=== PATIENT | female | born 1940 | race Caucasian/White ===

== ENCOUNTER → 2017-12-11 08:00 | Outpatient (CLI) | payer OTHER, SELFPAY ==
--- NOTE | 2017-12-11 | DI.MRI.S_ITS ---
PROCEDURE: MR PELVIS WO CON INDICATIONS: 77 year-old female with pelvic pain and lumbar stenosis. TECHNIQUE: Noncontrast coronal and axial T1 spin echo and STIR through the bony pelvis. COMPARISON: [facility], MR, MR LUMBAR SPINE WO CON, 12/11/2017, 8:26. FINDINGS: Image quality: Several sequences are mildly degraded by respiratory motion. Bones: Bone marrow of the pelvic ring, sacrum, and proximal femurs show normal signal throughout. No intraosseous lesions or fractures identified. There is asymmetric right hip joint degeneration, with patchy full thickness cartilage loss of the right femoral head and acetabulum, with subchondral marrow edema. The visualized lower lumbar spine demonstrates multilevel degenerative disc narrowing and desiccation. Tendons: The gluteus medius and minimus tendons appear intact, without associated muscle atrophy. The nearby proximal iliotibial bands also appear intact. The iliopsoas tendons appear intact, without adjacent bursal fluid collections or evidence for impingement syndrome. The origin of the hamstring tendons are intact at the ischial tuberosity, as well as the associated sacrotuberous ligaments. The straight and reflected heads of the rectus femoris muscle origins appear intact, as well as the conjoint tendon. On coronal image 16, widespread posterior right hip paralabral cysts are present, measuring up to 3 cm in aggregate craniocaudal dimensions. Soft tissues: Visualized muscles demonstrate normal bulk and internal signal. No joint effusions. No free pelvic fluid. Bladder wall thickness is normal. There is mild sigmoid colon diverticulosis. Uterus is normal in size, with 10 mm left uterine body intramural fibroid. Postmenopausal ovaries both appear atrophic. IMPRESSION: 1. Asymmetric right hip joint degeneration, as well as widespread posterior right hip labral tear with paralabral cyst formation. 2. 10 mm left uterine body intramural fibroid. Dictated by: Sami Smith M.D. on 12/11/2017 at 10:41 Approved by: Sami Smith M.D. on 12/11/2017 at 10:50
--- NOTE | 2017-12-11 | DI.MRI.S_ITS ---
PROCEDURE: MR LUMBAR SPINE WO CON INDICATIONS: LUMBAR SPINE STENOSIS TECHNIQUE: Noncontrast sagittal T1 spin echo and T2 fast echo, sagittal STIR, axial T1 and T2 fast spin echo through the lumbar spine. In this patient, coronal T2-weighted images were also performed. COMPARISON: [facility], , MRI L-SPINE W/O CONTRAST, 02/20/2000, 12:19. [facility], MR, L-SPINE WITHOUT CONTRAST, 08/18/2015, 10:17. [facility], XA, L/S-SPINE 2-3 VIEWS PAIN DEPT, 11/20/2009, 10:26. FINDINGS: Image quality: Diagnostic, with note made of motion artifact. Alignment and Curvature: S-shaped scoliotic curvature is seen. There is minimal anterolisthesis at L3-L4. Minimal retrolisthesis is seen at L5-S1. Bone Marrow: Marrow is of normal overall signal. No acute vertebral body compression fractures. Spinal Cord: Conus medullaris terminates at the L1 level. Visualized cord demonstrates normal signal and size. Paraspinous Soft Tissues: No paravertebral masses. T11-T12: The disc height is well-preserved. Loss of disc signal is seen at this level. Moderate generalized disc bulge is seen. At least moderate bilateral neural foraminal narrowing is seen. Moderate central canal narrowing is seen. T12-L1: The disc height is well-preserved. Loss of disc signal is seen at this level. Moderate generalized disc bulge is seen. There is at least moderate bilateral neural foraminal narrowing seen. Moderate to severe central canal narrowing is seen, as on series 6 image 32. L1-L2: Moderate to severe loss of disc height and disc signal are seen. Endplate irregularity is seen. Reactive marrow endplate changes are seen, which demonstrate mixed T1 weighted and T2-weighted signal, and are attributed to a combination of edema and fatty metaplasia (Modic type I and Modic type II changes). Moderate to prominent disc bulge is seen. Moderate facet joint hypertrophy is seen. Moderate to severe bilateral neural foraminal narrowing is seen, right worse than left. There is a degree of impingement seen upon the exiting nerve roots. Moderate to severe central canal narrowing is seen. No significant change from the prior. L2-L3: Moderate loss of disc height is seen. Loss of disc signal is seen. Moderate generalized disc bulge is seen. [id number]-[id number] facet hypertrophy is seen. There is at least moderate left-sided and moderate right-sided neural foraminal narrowing seen Moderate central canal narrowing is seen. When comparison is made with the prior examination, these findings are similar. L3-L4: Moderate to severe loss of disc height and disc signal are seen. Moderate disc bulge seen, which is eccentric to the left. Moderate facet joint hypertrophy is seen. There has been removal of portions of the posterior elements. There is moderate to severe left-sided and moderate right-sided neural foraminal narrowing seen. Mild central canal narrowing is seen. The degree of central canal narrowing is improved compared to 2016. L4-L5: Moderate to severe loss of disc height and disc signal are seen in moderate disc bulge is seen, which is eccentric to the left. There is at least moderate bilateral neural foraminal narrowing seen, left worse than right. There has been removal of portions of the posterior elements. Mild central canal narrowing is seen. The degree of central canal narrowing is improved compared to the preoperative MRI. L5-S1: At least moderate loss of disc height and disc signal are seen. Moderate disc bulge is seen, which is eccentric to the right. Imcx-ad-[id number] facet hypertrophy is seen. Moderate bilateral neural foraminal narrowing is seen, right worse than left. Moderate central canal narrowing is seen. When comparison is made with the prior examination, these findings are similar. IMPRESSION: Improved central canal narrowing at L3-L4 and L4-L5 compared to 2016. Otherwise, the degrees of degenerative change are similar to 2016. S-shaped scoliotic curvature. Dictated by: Matt Golden M.D. on 12/11/2017 at 9:03 Approved by: Matt Golden M.D. on 12/11/2017 at 9:12
== END ==
PROVIDERS: Family Provider Family Medicine; PCP Family Medicine; Visit Provider Physical Medicine & Rehabilitation
DX: M48.061 Spinal stenosis, lumbar region without neurogenic claudication (principal); R10.2 Pelvic and perineal pain; M16.11 Unilateral primary osteoarthritis, right hip; D25.1 Intramural leiomyoma of uterus; S73.101A Unspecified sprain of right hip, initial encounter
CPT/HCPCS: 72148; 72195

== ENCOUNTER → 2020-01-11 12:34 | Outpatient (CLI) | payer OTHER, SELFPAY ==
--- NOTE | 2020-01-11 12:39 | DI.CT.S_ITS ---
PROCEDURE: CT UE LT WO CON INDICATIONS: Primary osteoarthritis, left shoulder TECHNIQUE: Noncontrast 1 mm thick sections acquired from the acromioclavicular joint to the inferior scapula, with coronal and sagittal reformatting. COMPARISON: None. FINDINGS: Image quality: Excellent. Bones: Severe glenohumeral joint osteoarthritic changes are noted with near complete loss of medial joint space, extensive subchondral sclerosis and cyst formation and prominent marginal osteophyte formation. Moderate acromioclavicular joint osteoarthritic changes are also seen. There is no acute fracture or dislocation. No suspicious intraosseous lesion is noted. Soft tissues: There is suggestion of large joint effusion and subacromial subdeltoid bursal fluid. There is suggestion of full-thickness rupture involving distal supraspinatus and infraspinatus. Moderate supraspinatus and likely infraspinatus muscle atrophy is also noted. IMPRESSION: 1. Severe glenohumeral joint osteoarthritis and moderate acromioclavicular joint osteoarthritis. No shoulder fracture or dislocation. No suspicious intraosseous lesion. 2. Suggestion of full-thickness rupture involving distal supraspinatus and infraspinatus with moderate supraspinatus and likely infraspinatus muscle atrophy. Large amount of joint fluid in subacromial subdeltoid bursal fluid. No definite intra-articular calcified loose body is seen. Dictated by: Aime Isabel M.D. on 01/11/2020 at 15:09 Approved by: Aime Isabel M.D. on 01/11/2020 at 15:13
== END ==
PROVIDERS: Family Provider Family Medicine; PCP Family Medicine; Referring Provider Orthopaedic Surgery; Visit Provider Orthopaedic Surgery
DX: M19.012 Primary osteoarthritis, left shoulder (principal)
CPT/HCPCS: 73200

== ENCOUNTER → 2020-08-23 13:41 | Outpatient (CLI) | payer OTHER, SELFPAY ==
--- NOTE | 2020-08-23 14:46 | DI.MRI.S_ITS ---
PROCEDURE: MR PELVIS WO CON INDICATIONS: Pain in left hip TECHNIQUE: Noncontrast axial and coronal T1 spin echo and STIR through the lumbosacral plexus region. Optional contrast may be given, followed by axial and coronal T1 spin echo with fat saturation through the sacral plexus. COMPARISON: [facility], CR, XR LUMBAR SPINE WITH OLBIQUES PLUS FLEXION EXTENSION, 03/29/2020, 15:08. [facility], , MR PELVIS WO CON, 12/11/2017, 9:03. FINDINGS: Image quality: Excellent. Lumbosacral plexus: Superior to the piriformis muscles, the pre-plexal structures appear normal, including the lumbosacral trunk and S1 root. Just anterior to the piriformis muscles, the sacral plexus proper demonstrates normal morphology (lumbosacral trunk, S1 to S3 nerve roots). Inferior to the piriformis muscles, the sciatic nerves appear normal. Soft tissues: The piriformis muscles appear symmetric in size. No presacral masses. Rectum appears normal in caliber and wall thickness. No pathologic free pelvic fluid. No visualized adenopathy by size criteria. Bones: Marrow is normal in overall signal, and there is a [id number] degree of bilateral hip joint space narrowing, consistent with degenerative osteoarthritis, chronic. There is lumbosacral spine disc height reduction also, partially visualized. No disc herniation impinging on individual nerve roots is seen, by the limited evaluation through that area. There is no mass or inflammation impinging on the lumbosacral plexus, and a definite source of asymmetric left greater than right hip pain is not found. No inflammatory or neoplastic process is seen through the adnexal structures.. IMPRESSION: Overall the study shows degenerative hip joint osteoarthritis that is considered near symmetric bilaterally. There is also degenerative lumbosacral spine disc disease which is only partially visualized at the uppermost imaging of this study. Overall no impingement on the lumbosacral plexus or evidence of discrete new orthopedic abnormality is found to explain asymmetric left-sided symptomatology. Dictated by: Ger Dow M.D. on 08/23/2020 at 16:44 Approved by: Ger Dow M.D. on 08/23/2020 at 16:49
== END ==
PROVIDERS: Family Provider Family Medicine; PCP Family Medicine; Referring Provider Physical Medicine & Rehabilitation; Visit Provider Physical Medicine & Rehabilitation
DX: M25.552 Pain in left hip (principal); M16.0 Bilateral primary osteoarthritis of hip; M51.37 Other intervertebral disc degeneration, lumbosacral region
CPT/HCPCS: 72195

== ENCOUNTER → 2021-11-12 13:04 | Outpatient (CLI) | payer OTHER, SELFPAY | PROVIDERS: Family Provider Family Medicine; PCP Family Medicine; Referring Provider Family Medicine; Visit Provider Family Medicine | DX: T81.89XA Other complications of procedures, not elsewhere classified, initial encounter (principal); S81.801A Unspecified open wound, right lower leg, initial encounter; L92.8 Other granulomatous disorders of the skin and subcutaneous tissue; I87.2 Venous insufficiency (chronic) (peripheral); R60.0 Localized edema; Z85.828 Personal history of other malignant neoplasm of skin | CPT/HCPCS: 11042; 99204; 99213 ==

== ENCOUNTER → 2021-12-06 13:45 | Outpatient (CLI) | payer OTHER, SELFPAY | PROVIDERS: Family Provider Family Medicine; PCP Family Medicine; Referring Provider Dermatology MOHS-Micrographic Surgery; Visit Provider Family Medicine | DX: Z09 Encounter for follow-up examination after completed treatment for conditions other than malignant neoplasm (principal); R60.0 Localized edema; Z86.007 Personal history of in-situ neoplasm of skin; Z87.2 Personal history of diseases of the skin and subcutaneous tissue | CPT/HCPCS: 99212; 99213 ==

== ENCOUNTER → 2022-02-28 13:39 | Outpatient (CLI) | payer OTHER, SELFPAY ==
--- NOTE | 2022-02-28 13:40 | DI.MRI.S_ITS ---
PROCEDURE: MR LUMBAR SPINE WO CON INDICATIONS: Spinal stenosis, lumbar region TECHNIQUE: Noncontrast sagittal T1 spin echo and T2 fast echo, sagittal STIR, and T2 fast spin echo through the lumbar spine. In cases with scoliosis, additional coronal T2 fast spin echo may be performed. COMPARISON: [facility], MR, MR LUMBAR SPINE WO CON, 12/11/2017, 8:26. [facility], RF, LUMBAR RHIZOTOMY, 08/30/2020, 12:24. [facility], CR, XR LUMBAR SPINE WITH OLBIQUES PLUS FLEXION EXTENSION, 03/29/2020, 15:08. [facility], MR, L-SPINE WITHOUT CONTRAST, 08/18/2015, 10:17. FINDINGS: Image quality: Age-appropriate bony degenerative changes are seen. Alignment and Curvature: Moderate S shaped scoliosis is seen. Bone Marrow: Marrow is of normal overall signal. No acute vertebral body compression fractures. Spinal Cord: Conus medullaris terminates at the L1 level. Visualized cord demonstrates normal signal and size. Paraspinous Soft Tissues: No paravertebral masses. T12-L1: There is at least moderate loss of disc height and disc signal on the right side. Reactive marrow endplate changes are seen which are hypointense on T1-weighted imaging and hyperintense on T2 weighted imaging, which is most consistent with edema (Modic type I changes). Relatively prominent endplate irregularity can be seen. At least moderate disc bulge is seen, which is eccentric to the right. There is a central disc extrusion, with mild superior migration of the disc material. There is moderate to severe bilateral neural foraminal narrowing seen, with an associated a degree of compression seen upon the exiting nerve roots. Moderate to severe central canal narrowing is also seen. These degenerative changes are mildly progressed compared to 2018. L1-L2: Moderate to severe loss of disc height and disc signal can be seen. Reactive marrow endplate changes are seen, which are hyperintense on T1-weighted and T2-weighted imaging and most consistent with fatty metaplasia (Modic type II changes). At least moderate disc bulge is seen, which is eccentric to the right side. There is at least moderate facet hypertrophy seen. There is moderate to severe bilateral neural foraminal narrowing seen, with an associated a degree of compression seen upon the exiting nerve roots. At least moderate central canal narrowing is also seen at this level. These degenerative changes are slightly progressed compared to 2018. L2-L3: At least moderate loss of disc height and disc signal can be seen on the left side. There is at least moderate left-sided neural foraminal narrowing, with a degree of compression upon the exiting left L2 nerve root. Moderate right-sided neural foraminal narrowing is seen. Moderate central canal narrowing is seen. When comparison is made with the prior images, these findings are similar. L3-L4: Moderate to severe loss of disc height and disc signal can be seen, which is slightly more prominent on the left than on the right. Bridging endplate osteophytes are seen on the left, as on series 3, image 6. There is at least moderate facet hypertrophy seen. There has been removal of portions of the posterior elements. There is [id number] right-sided and at least moderate left-sided neural foraminal narrowing. Mild central canal narrowing is seen. When comparison is made with the prior images, these findings are similar. L4-L5: There is at least moderate loss of disc height and disc signal seen. At least moderate disc bulge is seen, which is eccentric to the left. Partially bridging endplate osteophytes are seen on the left, as on series 3, image 5. At least moderate facet hypertrophy is seen. There has been removal of portions of the posterior elements. There is at least moderate right-sided and moderate to severe left-sided neural foraminal narrowing. There is a degree of compression seen upon the exiting nerve roots. Mild to moderate central canal narrowing is seen. No significant change from the prior. L5-S1: Moderate to severe loss of disc height and disc signal can be seen. At least moderate disc bulge is seen, which is eccentric to the right. Bridging endplate osteophytes are seen on the right, as on series 3, image 6. Moderate facet hypertrophy is seen at this level. There is at least moderate bilateral neural foraminal narrowing seen. There is a degree of compression seen upon the exiting nerve roots. Mild central canal narrowing is seen. When comparison is made with the prior images, these findings are similar. IMPRESSION: Multiple levels of lumbar spine prominent degenerative change can be seen, which are mildly progressed superiorly compared to 2018. Several sites of significant neural foraminal narrowing can be seen, with associated exiting nerve root compression. There is moderate S shaped scoliosis. Dictated by: Matt Golden M.D. on 02/28/2022 at 16:33 Approved by: Matt Golden M.D. on 02/28/2022 at 16:40
== END ==
PROVIDERS: Family Provider Family Medicine; PCP Family Medicine; Referring Provider Physical Medicine & Rehabilitation; Visit Provider Physical Medicine & Rehabilitation
DX: M48.062 Spinal stenosis, lumbar region with neurogenic claudication (principal); M41.86 Other forms of scoliosis, lumbar region
CPT/HCPCS: 72148

== ENCOUNTER 2024-01-12 09:45 | Outpatient (RCR) | payer OTHER, SELFPAY ==
--- NOTE | 2023-10-31 19:15 | PT.OIE ---
Current Diagnoses Other female genital prolapse (10/31/23) Visit Care Team Role Provider Type Dior Pires DO Family Provider Non-Staff Primary Care Provider Specialty: Family Practice Address: [address], [place], [address] Email: Enmanuel Serna MD Attending Provider Non-Staff Referring Provider Specialty: Internal Medicine Address: [address], [place], [address] Email: Physical Therapy Initial Evaluation PT-OP-A Visit Information Start: 10/03/23 19:13 Freq: Status: Active Protocol: Document 10/31/23 09:52 LRN (Rec: 10/31/23 10:37 LRN [id number]) Out-Patient Physical Therapy Visit Information Visit Information Visit Type Initial Evaluation Visit Start Time 09:52 Visit Stop Time 10:36 Visit Number 1 Evaluation Information Evaluation Date 10/31/23 Precautions Precautions Hearing problems, 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 Requests no laser treatment (pt may mean vaginal E-stim). PT-OP-B Current Condition Start: 10/03/23 19:13 Freq: Status: Active Protocol: Document 10/31/23 09:52 LRN (Rec: 10/31/23 10:37 LRN [id number]) Current Condition History of Current Condition Onset Date 03/25/23 Current Complaints Told cystocele and increased urination frequency. History of Current Condition Pt reports after ultrasound on 03/25/23, she was told she had a rectocele, then ~2 months later was told by OBGYN she had a cyctocele and was told if she didn't treat it, she would need surgery. Pt attends therapy to avoid surgery. She reports having low back pain (LBP) because she is overdue for her epidural spinal injection (MARY ) that she has every 6 months. She has trouble with back pain and sits on cushion for her LBP. Pt states she has had therapy in the past and doesn't want laser treatment (pt told we don't do laser treatments here in this clinic ). Treatment Goals Patient/Caregiver Goals Pt goals: -tighten ms controlling bladder and bowel to avoid surgery based on US imaging and OBGYN report. -decrease voiding frequency. -HEP Personal Factors Other Personal Factors That May Effect Pt reports: Lami 2016 f/b Therapy/Recovery Chronic Sacral nerve pain & LBP, currently needing an MARY (epidural spinal injection) given every 6 months, arthritis, SOB w/blood pressure changes. PT-OP-C Subjective Start: 10/03/23 19:13 Freq: Status: Active Protocol: Document 10/31/23 09:52 LRN (Rec: 10/31/23 10:37 LRN [id number]) Patient Questionnaires Pelvic Pain and Urgency/Frequency Patient Symptom Scale Pelvic Pain Score 14 PT-OP-I Pelvic Floor Start: 10/03/23 19:13 Freq: Status: Active Protocol: Document 10/31/23 09:52 LRN (Rec: 10/31/23 18:32 LRN [id number]) Pelvic Floor Assessment Urine Urinary Symptoms Incomplete Emptying,Falling Out Feeling/Heavy Other Urinary Symptoms Feeling of pelvic heaviness/ pressure with exertion or straining. Slow stream Leakage Size Small Leakage Cause Cough,Exercise,Sneeze,Urge Other Leakage Causes Strong cough or sneeze. Triggers: Severe sacral nerve pain, muscle spasms. Nocturia 3 Urine Pad Type Panty Liner Bowel Bowel Symptoms Fecal Leakage Other Bowel Symptoms Pt unaware of small fecal leakage. Pelvic Clock Pelvic Clock Other Superficial sphinter muscle tone was present. Atrophy of deeper PF muscles around the clock except at 5-7 of PF clock. Prolapse Cystocele Grade 2 Rectocele Grade 1 Perineal Descent Resting Absent Bearing Present Contraction Ability Voluntary Contraction Weak Voluntary Relaxation Moderate Manual Muscle Testing Left 2 Manual Muscle Testing Right 1 Manual Muscle Testing Anterior 1 Manual Muscle Testing Posterior 2 Muscle Endurance (Seconds) 3 Number of Quick Contractions In 10 4 Seconds Comments Pelvic Floor Comments Pt had small fecal leakage that she wasn't aware of. PT-OP-J Posture/Palpation/Skin Start: 10/03/23 19:13 Freq: Status: Active Protocol: Document 10/31/23 09:52 LRN (Rec: 10/31/23 10:37 LRN [id number]) Posture Evaluation Position Standing Head/C-Spine Posture Forward Head T-Spine Posture Increased Kyphosis L-Spine Posture Decreased Lordosis Shoulder Posture (L) Elevated Scapula Posture (R) Depressed Arm Posture (R) Internally Rotated Hip Posture (L) Flexed,(R) Flexed Knee Posture (L) Excess Flexion,(R) Excess Flexion Comments Posture Comments Mild C-curve of upper thoracic and lumbar spine apex on left , Forward bent at hips 4 deg's , even SI, Iliac crest. PT-OP-K Range of Motion Start: 10/03/23 19:13 Freq: Status: Active Protocol: Document 10/31/23 09:52 LRN (Rec: 10/31/23 10:37 LRN [id number]) Lumbar Spine Range of Motion Lumbar Spine Active Degrees Testing Position Standing Flexion 75 Extension 10 Rotation Left 10 Rotation Right 20 Lateral Flexion Left 7 Lateral Flexion Right 10 Hip Goniometric Range of Motion Hip Right Passive Testing Position Supine Internal Rotation 45 External Rotation 50 Left Passive Testing Position Supine Internal Rotation 50 External Rotation 50 PT-OP-M Strength Start: 10/03/23 19:13 Freq: Status: Active Protocol: Document 10/31/23 09:52 LRN (Rec: 10/31/23 10:37 LRN [id number]) Trunk Strength Trunk Manual Muscle Testing Core Stabilization Loss of trunk rot with MMT of LE's. Hip Strength Hip Manual Muscle Testing Right Extension (S1) 3+ Fair+ Abduction 3 Fair Left Extension (S1) 3+ Fair+ Abduction 3 Fair Internal Rotation 3+ Fair+ PT-OP-Q Treatments Start: 10/03/23 19:13 Freq: Status: Active Protocol: Document 10/31/23 09:52 LRN (Rec: 10/31/23 10:37 LRN [id number]) Self-Care/Home Management Treatment Education Other Education Discussed results of evaluation, attendance compliance, goals, and plan of care (POC). Pt agreeable to attendance compliance, goals and POC. Pt educated in use of Bladder Diary and I/S in tracking for 1 week. Activities Self-Care/Home Management Activities Issued & reviewed HEP: Manuel ex's - quick and long hold PF contractions. PT-OP-T Assessment and Plan Start: 10/03/23 19:13 Freq: Status: Active Protocol: Document 10/31/23 09:52 LRN (Rec: 10/31/23 10:37 LRN [id number]) Physical Therapy Assessment Rehab Potential Rehabilitation Potential Good Evaluation Complexity Number of Personal Factors/Comorbidities 3 or More Number of Body Systems Impaired 4 or More Clinical Presentation at Evaluation Evolving Impairments Impairments Activity Tolerance,Pain, Posture,ROM,Strength,Transfers Goals Three Impairment PF weakness, cystocele Short Term Goal (STG) Pt will be educated in vulvar/ genital care and will be able to perform a PF contraction in abscence of substitute muscles. STG Duration 4 wks-11/28/23 Fpc Goal (LTG) Improve PF strength to 3/5 with pt able to maintain continence in presence of a strong cough or sneeze and improve bladder positioning, with a reducation of sensation of pressure and heaviness in PF. LTG Duration 12 wks-01/23/24 Two Impairment Increased voiding frequency Impairment Pt voids 3x/during the night. Short Term Goal (STG) Pt will be educated in urge deference technique. STG Duration 4 wks-11/28/23 Fpc Goal (LTG) Decrease voiding frequency. LTG Duration 12 wks-01/23/24 One Impairment Pt lacks appropriate self care HEP Impairment Goal: Pt will be independent with a self care HEP of PF/core strengthening and hip ROM exercises. Short Term Goal (STG) Education in core pressure management for transfer ( coordination of breathing), ADLs & exercise. STG Duration 4 wks-11/28/23 Card Punching Machine Operator Goal (LTG) Pt will be independent with a self care HEP of PF/core strengthening and hip ROM/ strengthening exercises. LTG Duration 12 wks-01/23/24 Assessment Summary Assessment Pt is an 83 yo female with stress urinary incontinence and cystocele grade 2 due to PF weakness, complicated by sacral nerve pain s/p laminectomy in 2016. The pt requests no use of laser treatment that she said she had here in physical therapy, but since we have not ever use laser for treatment I believe maybe she means biofeedback/E -stim with vaginal electrode; therefore we will not plan on using biofeedback for this patient. The pt will benefit from skilled physical therapy for pt education in core pressure management with transfers, ADLs and exercise ( pt is in a physical therapy rehab program in [place]), PF strengthening, behaviour modification based on review of her bladder diary, and core /hip strengthening. The pt's rehab may take longer than expected due to her chronic LBP and her needing an epidural spinal injection (MARY ) that she is overdue. Physical Therapy Plan Frequency and Duration Frequency of Treatment 1x/Week Duration of treatment (weeks) 12 Plan of Care Start Date 10/31/23 Plan of Care End Date 01/23/24 Therapeutic Interventions Therapeutic Interventions Home Exercise Program,Manual Therapy,Neuromuscular Re- education,Self-Care/Home Management,Therapeutic Activities,Therapeutic Exercises Modalities Cold Pack/Ice Massage Next Visit Focus/Plan Next Note Type Treatment Note Next Visit Plan Assess bladder diary and bowel involvement with recommendations as appropriate . Education: PF contractions in isolation of substitute muscles, coordination of proper breaths with ADLs, transfers, body mechanics and exercise. PF rehab strengthening on wedge, no VEMG work. Core strengthening (caution sacral n pain s/p Lami) Hip stretch (ER anitha, IR R>L) & hip strengtheing.
--- NOTE | 2023-10-31 19:16 | PT.OPPOC ---
Physical, Occupational & Speech Therapy At [facility] Current Diagnoses Other female genital prolapse (10/31/23) Visit Care Team Role Provider Type Dior Pires DO Family Provider Non-Staff Primary Care Provider Specialty: Family Practice Address: [address], [place], [address] Email: Enmanuel Serna MD Attending Provider Non-Staff Referring Provider Specialty: Internal Medicine Address: [address] [place] [address] [address], [place], [address] Email: Plan Of Care PT-OP-T Assessment and Plan Start: 10/03/23 19:13 Freq: Status: Active Protocol: Document 10/31/23 09:52 LRN (Rec: 10/31/23 10:37 LRN [id number]) Physical Therapy Assessment Rehab Potential Rehabilitation Potential Good Evaluation Complexity Number of Personal Factors/Comorbidities 3 or More Number of Body Systems Impaired 4 or More Clinical Presentation at Evaluation Evolving Impairments Impairments Activity Tolerance,Pain, Posture,ROM,Strength,Transfers Goals Three Impairment PF weakness, cystocele Short Term Goal (STG) Pt will be educated in vulvar/ genital care and will be able to perform a PF contraction in abscence of substitute muscles. STG Duration 4 wks-11/28/23 Roll Form Operator Goal (LTG) Improve PF strength to 3/5 with pt able to maintain continence in presence of a strong cough or sneeze and improve bladder positioning, with a reducation of sensation of pressure and heaviness in PF. LTG Duration 12 wks-01/23/24 Two Impairment Increased voiding frequency Impairment Pt voids 3x/during the night. Short Term Goal (STG) Pt will be educated in urge deference technique. STG Duration 4 wks-11/28/23 Roll Form Operator Goal (LTG) Decrease voiding frequency. LTG Duration 12 wks-01/23/24 One Impairment Pt lacks appropriate self care HEP Impairment Goal: Pt will be independent with a self care HEP of PF/core strengthening and hip ROM exercises. Short Term Goal (STG) Education in core pressure management for transfer ( coordination of breathing), ADLs & exercise. STG Duration 4 wks-11/28/23 Detention Goal (LTG) Pt will be independent with a self care HEP of PF/core strengthening and hip ROM/ strengthening exercises. LTG Duration 12 wks-01/23/24 Assessment Summary Assessment Pt is an 83 yo female with stress urinary incontinence and cystocele grade 2 due to PF weakness, complicated by sacral nerve pain s/p laminectomy in 2016. The pt requests no use of laser treatment that she said she had here in physical therapy, but since we have not ever use laser for treatment I believe maybe she means biofeedback/E -stim with vaginal electrode; therefore we will not plan on using biofeedback for this patient. The pt will benefit from skilled physical therapy for pt education in core pressure management with transfers, ADLs and exercise ( pt is in a physical therapy rehab program in [place]), PF strengthening, behaviour modification based on review of her bladder diary, and core /hip strengthening. The pt's rehab may take longer than expected due to her chronic LBP and her needing an epidural spinal injection (MARY ) that she is overdue. Physical Therapy Plan Frequency and Duration Frequency of Treatment 1x/Week Duration of treatment (weeks) 12 Plan of Care Start Date 10/31/23 Plan of Care End Date 01/23/24 Therapeutic Interventions Therapeutic Interventions Home Exercise Program,Manual Therapy,Neuromuscular Re- education,Self-Care/Home Management,Therapeutic Activities,Therapeutic Exercises Modalities Cold Pack/Ice Massage Next Visit Focus/Plan Next Note Type Treatment Note Next Visit Plan Assess bladder diary and bowel involvement with recommendations as appropriate . Education: PF contractions in isolation of substitute muscles, coordination of proper breaths with ADLs, transfers, body mechanics and exercise. PF rehab strengthening on wedge, no VEMG work. Core strengthening (caution sacral n pain s/p Lami) Hip stretch (ER anitha, IR R>L) & hip strengtheing. Plan of Care Dates Plan of Care Start Date 10/31/23 Plan of Care End Date 01/23/24 Electronically Signed by: Kavya Jimenez, PT 10/31/231915 If you are in agreement with this Plan of Care, please return a signed and dated copy. I have reviewed this Plan of Care and certify that the skilled therapy services above are required to meet the patient?s needs. Physician Signature Date Printed Name and Credentials Clinical Instructor Signature Printed Name and Credentials
--- NOTE | 2023-11-07 15:52 | PT.OTN ---
Current Diagnoses Other female genital prolapse (11/07/23) Physical Therapy Treatment Note PT-OP-A Visit Information Start: 10/03/23 19:13 Freq: Status: Active Protocol: Document 11/07/23 13:08 LRN (Rec: 11/07/23 13:48 LRN [id number]) Out-Patient Physical Therapy Visit Information Visit Information Visit Type Treatment Note Visit Note Wgt 134# Visit Start Time 13:08 Visit Stop Time 13:46 Visit Number 2 Evaluation Information Evaluation Date 10/31/23 Precautions Precautions Hearing problems, Chronic sacral nerve pain & LBP after Lami-2015; MARY (epidural spinal injection) at L4, L5, S1 every 6 months, arthritis, reverse L TSA, SOB, blood pressure. Requests no laser treatment (pt may mean vaginal E-stim). PT-OP-B Current Condition Start: 10/03/23 19:13 Freq: Status: Active Protocol: Document 10/31/23 09:52 LRN (Rec: 10/31/23 10:37 LRN [id number]) Current Condition History of Current Condition Onset Date 03/25/23 Current Complaints Told cystocele and increased urination frequency. History of Current Condition Pt reports after ultrasound on 03/25/23, she was told she had a rectocele, then ~2 months later was told by OBGYN she had a cyctocele and was told if she didn't treat it, she would need surgery. Pt attends therapy to avoid surgery. She reports having low back pain (LBP) because she is overdue for her epidural spinal injection (MARY ) that she has every 6 months. She has trouble with back pain and sits on cushion for her LBP. Pt states she has had therapy in the past and doesn't want laser treatment (pt told we don't do laser treatments here in this clinic ). Treatment Goals Patient/Caregiver Goals Pt goals: -tighten ms controlling bladder and bowel to avoid surgery based on US imaging and OBGYN report. -decrease voiding frequency. -HEP Personal Factors Other Personal Factors That May Effect Pt reports: Lam2015 f/b Therapy/Recovery Chronic Sacral nerve pain & LBP, currently needing an MARY (epidural spinal injection) given every 6 months, arthritis, SOB w/blood pressure changes. PT-OP-C Subjective Start: 10/03/23 19:13 Freq: Status: Active Protocol: Document 11/07/23 13:08 LRN (Rec: 11/07/23 13:48 LRN [id number]) OP-PT Subjective Patient Comments Patient Comments After the evaluation had a lot of back pain; therefore was going to the bathroom a lot on the bladder diary. PT-OP-I Pelvic Floor Start: 10/03/23 19:13 Freq: Status: Active Protocol: Document 11/07/23 13:08 LRN (Rec: 11/07/23 13:48 LRN [id number]) Pelvic Floor Assessment Urine Urinary Symptoms Incomplete Emptying Other Urinary Symptoms Feeling of pelvic heaviness/ pressure in rectal region. Slow stream Other Leakage Causes Once in a while a cough that causes a very small leakage. Since last visit had a small leakage lifting both legs in bed. Leaks Per Day 0 Bowel Other Bowel Symptoms After taking stool softener, had a small amount of fecal leakage, normally no fecal leakage. Pelvic Clock Pelvic Clock Other Superficial sphinter muscle tone was present. Atrophy of deeper PF muscles around the clock except at 5-7 of PF clock. Prolapse Cystocele Grade 2 Rectocele Grade 1 Perineal Descent Resting Absent Bearing Present Contraction Ability Voluntary Contraction Weak Voluntary Relaxation Moderate Manual Muscle Testing Left 2 Manual Muscle Testing Right 1 Manual Muscle Testing Anterior 1 Manual Muscle Testing Posterior 2 Muscle Endurance (Seconds) 3 Number of Quick Contractions In 10 4 Seconds Comments Pelvic Floor Comments Pt had small fecal leakage that she wasn't aware of. PT-OP-J Posture/Palpation/Skin Start: 10/03/23 19:13 Freq: Status: Active Protocol: Document 10/31/23 09:52 LRN (Rec: 10/31/23 10:37 LRN [id number]) Posture Evaluation Position Standing Head/C-Spine Posture Forward Head T-Spine Posture Increased Kyphosis L-Spine Posture Decreased Lordosis Shoulder Posture (L) Elevated Scapula Posture (R) Depressed Arm Posture (R) Internally Rotated Hip Posture (L) Flexed,(R) Flexed Knee Posture (L) Excess Flexion,(R) Excess Flexion Comments Posture Comments Mild C-curve of upper thoracic and lumbar spine apex on left , Forward bent at hips 4 deg's , even SI, Iliac crest. PT-OP-K Range of Motion Start: 10/03/23 19:13 Freq: Status: Active Protocol: Document 10/31/23 09:52 LRN (Rec: 10/31/23 10:37 LRN [id number]) Lumbar Spine Range of Motion Lumbar Spine Active Degrees Testing Position Standing Flexion 75 Extension 10 Rotation Left 10 Rotation Right 20 Lateral Flexion Left 7 Lateral Flexion Right 10 Hip Goniometric Range of Motion Hip Right Passive Testing Position Supine Internal Rotation 45 External Rotation 50 Left Passive Testing Position Supine Internal Rotation 50 External Rotation 50 PT-OP-M Strength Start: 10/03/23 19:13 Freq: Status: Active Protocol: Document 10/31/23 09:52 LRN (Rec: 10/31/23 10:37 LRN [id number]) Trunk Strength Trunk Manual Muscle Testing Core Stabilization Loss of trunk rot with MMT of LE's. Hip Strength Hip Manual Muscle Testing Right Extension (S1) 3+ Fair+ Abduction 3 Fair Left Extension (S1) 3+ Fair+ Abduction 3 Fair Internal Rotation 3+ Fair+ PT-OP-Q Treatments Start: 10/03/23 19:13 Freq: Status: Active Protocol: Document 11/07/23 13:08 LRN (Rec: 11/07/23 13:48 LRN [id number]) Therapeutic Exercises Supine Exercises Bowel massage Supine Exercise Name Pt education and training and performing bowel massage Resistance Extra teim for training Reps/Minutes 3x by PT 5x by patient Comments Pt cued not to massage deeply into pain or dig with fingers. Self-Care/Home Management Treatment Education Other Education Reviewed and discussed at length pt's Bladder dairy and discussed fluid intake (AM/PM) , bowel movement frequency, & nighttime voiding frequency. Pt educated in vulvar/genital care Activities Self-Care/Home Management Activities Issued & reviewed handout for Bowel massage and Bowel program. PT-OP-T Assessment and Plan Start: 10/03/23 19:13 Freq: Status: Active Protocol: Document 11/07/23 13:08 LRN (Rec: 11/07/23 13:48 LRN [id number]) Physical Therapy Assessment Goals Three Impairment PF weakness, cystocele Short Term Goal (STG) Pt will be educated in vulvar/ genital care and will be able to perform a PF contraction in abscence of substitute muscles. 11/07/23: Pt educated in vulvar/genital care. STG Duration 4 wks-11/28/23 progressed Plastics Engineering Teacher Goal (LTG) Improve PF strength to 3/5 with pt able to maintain continence in presence of a strong cough or sneeze and improve bladder positioning, with a reducation of sensation of pressure and heaviness in PF. LTG Duration 12 wks-01/23/24 Two Impairment Increased voiding frequency Impairment Pt voids 3x/during the night. Short Term Goal (STG) Pt will be educated in urge deference technique. STG Duration 4 wks-11/28/23 Mcfp Goal (LTG) Decrease voiding frequency. LTG Duration 12 wks-01/23/24 One Impairment Pt lacks appropriate self care HEP Impairment Goal: Pt will be independent with a self care HEP of PF/core strengthening and hip ROM exercises. Short Term Goal (STG) Education in core pressure management for transfer ( coordination of breathing), ADLs & exercise. STG Duration 4 wks-11/28/23 Plastics Engineering Teacher Goal (LTG) Pt will be independent with a self care HEP of PF/core strengthening and hip ROM/ strengthening exercises. LTG Duration 12 wks-01/23/24 Assessment Summary Assessment Pt is an 83 yo female with fear of TAHMINA; cystocele grade 2 (initially told rectocele) due to PF weakness, complicated by sacral nerve pain s/p laminectomy in 2016, pt requests no laser/ biofeedback. Per bladder diary review, there is increased urination (every 2 hrs) for first 2 days due to increased LBP from last session, then fairly normal AM voiding frequency (3 hrs) until coffee drinking causing urination voiding afer 1 hr, then remainder of PM fairly normal (3 hrs). Pt reports drinking 2 oz water after voiding; therefore fluid intiake is good. Diary show no urinary leakage; therefore primary concern appear to be to strengthen the PF to prevent bladder (and if needed bowel) prolapse.. Physical Therapy Plan Frequency and Duration Frequency of Treatment 1x/Week Duration of treatment (weeks) 12 Plan of Care Start Date 10/31/23 Plan of Care End Date 01/23/24 Next Visit Focus/Plan Next Note Type Treatment Note Next Visit Plan Next: Review BM massage. Education: PF contractions in isolation of substitute muscles, coordination of proper breaths with ADLs, transfers, body mechanics and exercise. PF rehab strengthening on wedge, no VEMG work. Core strengthening (caution sacral n pain s/p Lami) Hip stretch (ER anitha, IR R>L) & hip strengthening.
--- NOTE | 2023-12-23 18:18 | PT-OP ANOTE ---
Per phone notified pt that at her next scheduled appt she will need to have her POC updated to continue therapy as long as she has made progress, but if she cancels then she would have to be discharged due to expiration of her POC and if she wants insurance coverage she would not have any. Pt hopes to attend 01/12/24, but she was told PT was not available, pt advised to call in to reschedule.
--- NOTE | 2024-01-12 16:36 | PT.OTN ---
Current Diagnoses Other female genital prolapse (01/12/24) Physical Therapy Treatment Note PT-OP-A Visit Information Start: 10/03/23 19:13 Freq: Status: Active Protocol: Document 01/12/24 09:57 LRN (Rec: 01/12/24 12:44 LRN [id number]) Out-Patient Physical Therapy Visit Information Visit Information Visit Type Treatment Note Visit Note Wgt 134# Visit Start Time 09:57 Visit Stop Time 10:37 Visit Number 3 Evaluation Information Evaluation Date 10/31/23 PT-OP-B Current Condition Start: 10/03/23 19:13 Freq: Status: Active Protocol: Document 10/31/23 09:52 LRN (Rec: 10/31/23 10:37 LRN [id number]) Current Condition History of Current Condition Onset Date 03/25/23 Current Complaints Told cystocele and increased urination frequency. History of Current Condition Pt reports after ultrasound on 03/25/23, she was told she had a rectocele, then ~2 months later was told by OBGYN she had a cyctocele and was told if she didn't treat it, she would need surgery. Pt attends therapy to avoid surgery. She reports having low back pain (LBP) because she is overdue for her epidural spinal injection (MARY ) that she has every 6 months. She has trouble with back pain and sits on cushion for her LBP. Pt states she has had therapy in the past and doesn't want laser treatment (pt told we don't do laser treatments here in this clinic ). Treatment Goals Patient/Caregiver Goals Pt goals: -tighten ms controlling bladder and bowel to avoid surgery based on US imaging and OBGYN report. -decrease voiding frequency. -HEP Personal Factors Other Personal Factors That May Effect Pt reports: Lami 2015 f/b Therapy/Recovery Chronic Sacral nerve pain & LBP, currently needing an MARY (epidural spinal injection) given every 6 months, arthritis, SOB w/blood pressure changes. PT-OP-C Subjective Start: 10/03/23 19:13 Freq: Status: Active Protocol: Document 01/12/24 09:57 LRN (Rec: 01/12/24 12:44 LRN [id number]) OP-PT Subjective Patient Comments Patient Comments States she feels she has gained more control and can hold longer between going to the bathroom. Sometimes she has felt like she had leaked ( after 2.5 hrs), but by the time she got to the bathroom, hadn't leaked. Doing Kegels a lot. No leaking anymore. PT-OP-I Pelvic Floor Start: 10/03/23 19:13 Freq: Status: Active Protocol: Document 11/07/23 13:08 LRN (Rec: 11/07/23 13:48 LRN [id number]) Pelvic Floor Assessment Urine Urinary Symptoms Incomplete Emptying Other Urinary Symptoms Feeling of pelvic heaviness/ pressure in rectal region. Slow stream Other Leakage Causes Once in a while a cough that causes a very small leakage. Since last visit had a small leakage lifting both legs in bed. Leaks Per Day 0 Bowel Other Bowel Symptoms After taking stool softener, had a small amount of fecal leakage, normally no fecal leakage. Pelvic Clock Pelvic Clock Other Superficial sphinter muscle tone was present. Atrophy of deeper PF muscles around the clock except at 5-7 of PF clock. Prolapse Cystocele Grade 2 Rectocele Grade 1 Perineal Descent Resting Absent Bearing Present Contraction Ability Voluntary Contraction Weak Voluntary Relaxation Moderate Manual Muscle Testing Left 2 Manual Muscle Testing Right 1 Manual Muscle Testing Anterior 1 Manual Muscle Testing Posterior 2 Muscle Endurance (Seconds) 3 Number of Quick Contractions In 10 4 Seconds Comments Pelvic Floor Comments Pt had small fecal leakage that she wasn't aware of. PT-OP-J Posture/Palpation/Skin Start: 10/03/23 19:13 Freq: Status: Active Protocol: Document 10/31/23 09:52 LRN (Rec: 10/31/23 10:37 LRN [id number]) Posture Evaluation Position Standing Head/C-Spine Posture Forward Head T-Spine Posture Increased Kyphosis L-Spine Posture Decreased Lordosis Shoulder Posture (L) Elevated Scapula Posture (R) Depressed Arm Posture (R) Internally Rotated Hip Posture (L) Flexed,(R) Flexed Knee Posture (L) Excess Flexion,(R) Excess Flexion Comments Posture Comments Mild C-curve of upper thoracic and lumbar spine apex on left , Forward bent at hips 4 deg's , even SI, Iliac crest. PT-OP-K Range of Motion Start: 10/03/23 19:13 Freq: Status: Active Protocol: Document 10/31/23 09:52 LRN (Rec: 10/31/23 10:37 LRN [id number]) Lumbar Spine Range of Motion Lumbar Spine Active Degrees Testing Position Standing Flexion 75 Extension 10 Rotation Left 10 Rotation Right 20 Lateral Flexion Left 7 Lateral Flexion Right 10 Hip Goniometric Range of Motion Hip Right Passive Testing Position Supine Internal Rotation 45 External Rotation 50 Left Passive Testing Position Supine Internal Rotation 50 External Rotation 50 PT-OP-M Strength Start: 10/03/23 19:13 Freq: Status: Active Protocol: Document 10/31/23 09:52 LRN (Rec: 10/31/23 10:37 LRN [id number]) Trunk Strength Trunk Manual Muscle Testing Core Stabilization Loss of trunk rot with MMT of LE's. Hip Strength Hip Manual Muscle Testing Right Extension (S1) 3+ Fair+ Abduction 3 Fair Left Extension (S1) 3+ Fair+ Abduction 3 Fair Internal Rotation 3+ Fair+ PT-OP-Q Treatments Start: 10/03/23 19:13 Freq: Status: Active Protocol: Document 01/12/24 09:57 LRN (Rec: 01/12/24 12:44 LRN [id number]) Therapeutic Exercises Supine Exercises Kegel Long Holds Reps/Minutes 8' Comments Cuing to isolate PF from substitute muscle. Bowel massage Supine Exercise Name Verbal review Reps/Minutes 3' Self-Care/Home Management Treatment Education Other Education Discussed at length pt's activities and ex's she has continued the past month while on vacation. Pt educated in urge deference technique. DIscussed HEP and not to over tighten PF with Kegel. Discussed at length her voiding frequency and norms for voiding daytime and nighttime. Reviewed recommendations of decreasing fluid intake in late evening unless needed for medications. Activities Self-Care/Home Management Activities Issued handout for Bladder retraining/urge deference technique. PT-OP-T Assessment and Plan Start: 10/03/23 19:13 Freq: Status: Active Protocol: Document 01/12/24 09:57 LRN (Rec: 01/12/24 12:44 LRN [id number]) Physical Therapy Assessment Goals Three Impairment PF weakness, cystocele Short Term Goal (STG) Pt will be educated in vulvar/ genital care and will be able to perform a PF contraction in abscence of substitute muscles. 11/07/23: Pt educated in vulvar/genital care. 01/12/24: Pt able to demonstrate ability to perform a Kegel in abscence of sbustitute muscles. STG Duration 4 wks-11/28/23 (01/12/24: MET GOAL) Skilled Nursing Goal (LTG) Improve PF strength to 3/5 with pt able to maintain continence in presence of a strong cough or sneeze and improve bladder positioning, with a reducation of sensation of pressure and heaviness in PF. 01/12/24: No leakage with strong cough or sneeze and no presence of heaviness of PF. Pt chooses to not have PF manually assessed for strength . LTG Duration 12 wks-01/23/24 (01/12/24: MET GOAL) Two Impairment Increased voiding frequency Impairment Pt voids 3x/during the night. Short Term Goal (STG) Pt will be educated in urge deference technique. 01/12/24: Pt educated in urge deference technique, pt had been doing a very similiar process for the past month. STG Duration 4 wks-11/28/23 (01/12/24: MET GOAL) Skilled Nursing Goal (LTG) Decrease voiding frequency. 01/12/24: Voiding 3x in AM, 2 -3x in PM and 3x at night. Sometimes voids due to getting up because of back pain. Pt feels like she is going less often during the day, same at night. LTG Duration 12 wks-01/23/24 (01/12/24: partially met goal). One Impairment Pt lacks appropriate self care HEP Impairment Goal: Pt will be independent with a self care HEP of PF/core strengthening and hip ROM exercises. Short Term Goal (STG) Education in core pressure management for transfer ( coordination of breathing), ADLs & exercise. STG Duration 4 wks-11/28/23 (01/12/24: NOT MET GOAL, early discharge) Skilled Nursing Goal (LTG) Pt will be independent with a self care HEP of PF/core strengthening and hip ROM/ strengthening exercises. 10/31/23: HEP: Kegel ex's - quick and long hold PF contractions. 11/07/23: Issued Bowel massage and Bowel program. 01/12/24: Handout for Bladder retraining/urge deference technique. LTG Duration 12 wks-01/23/24 (01/12/24 : Partially MET GOAL, early discharge) Assessment Summary Assessment Pt is an 83 yo female with fear of TAHMINA; cystocele grade 2 (initially told rectocele) due to PF weakness, complicated by sacral nerve pain s/p laminectomy in 2016. Pt chooses not to have physical assessment of the PF, but requested discussion of her exercise program and discharge to an independent HEP, requesting any other material or ex's to progress her condition of improving her rectocele. The pt is no longer feeling a sensation of pressure and heaviness in PF and appears to be voiding within norms of 6-7x/day, but is voiding the same through the night (3x/night). She feels her voiding frequency is less when compared to her initially attendance in October, except with nighttime voiding. The pt has been given a HEP that did not include core strengthening and hip ROM/ strengthening due to early discharge. Pt is happy with how she is doing and prefers to continue at this time on her HEP. The pt understands that if her condition changes she will need to seek a new referral to return to therapy. The pt needed this last visit for review of her HEP, and education in urge deference technique and assessment for further therapy , although pt chooses discharge from therapy. Her function has improved sightly after 6 wks of therapy and 3 visits with PUF score 13 ( initially 14). The pt today feels comfortable with discharge today from PT. Physical Therapy Plan Discharge Physical Therapy Discharge Reasons Patient Request Discharge Comments Pt was not able to return to PT on 11/13/23; therefore authorization extension for her to be seen today for her 3rd of 4 visits is needed for reasons as stated in assessment above. Thank you for your referral.
== END 2024-01-13 08:38 | disposition home or self-care (01) ==
LOC: PHYS 09:45
PROVIDERS: Family Provider Family Medicine; PCP Family Medicine; Referring Provider Internal Medicine; Visit Provider Internal Medicine
DX: N81.89 Other female genital prolapse (principal)
CPT/HCPCS: 97110; 97162; 97535

== ENCOUNTER → 2024-04-26 15:09 | Outpatient (CLI) | payer OTHER, SELFPAY ==
--- NOTE | 2024-04-26 15:11 | DI.CT.S_ITS ---
PROCEDURE: CT UE RT WO CON INDICATIONS: PAIN IN RIGHT SHOULDER TECHNIQUE: Noncontrast 0.75 mm thick sections acquired from the acromioclavicular joint to the inferior scapula, with coronal and sagittal reformatting. For radiation dose reduction, the following was used: automated exposure control, adjustment of mA and/or kV according to patient size. COMPARISON: [facility], CR, XR SHOULDER 2+ VIEWS RIGHT, 03/10/2024, 15:32. FINDINGS: Image quality: Excellent. Bones: No acute osseous fracture or dislocation. Severe degenerative changes are seen at the glenohumeral joint with full-thickness joint space narrowing, subchondral sclerosis, subchondral cystic changes, marginal osteophyte formation, and remodeling of the articular surfaces. There is no significant glenoid retroversion or anteversion relative to the midplane of the scapula at the mid glenoid level. Humeral head is high riding with complete narrowing of the acromial humeral interval and superimposed degenerative changes. Moderate acromioclavicular osteoarthrosis. Degenerative changes are seen at the sternoclavicular joint and in the included spine. Included ribs are intact. Soft tissues: Large glenohumeral effusion communicates with a large subacromial/subdeltoid effusion. Multiple calcified loose bodies are seen surrounding the shoulder. There is mild atrophy and grade 3-4 fatty infiltration of the supraspinatus and infraspinatus muscles. The tendons, ligaments, articular cartilages, and labrum are not well evaluated with CT. No significantly enlarged axillary lymph nodes. Included portions of the lung demonstrate peripheral reticulations and mosaic attenuation. IMPRESSION: 1. Severe glenohumeral osteoarthrosis with remodeling of the articular surfaces. 2. Large glenohumeral effusion with multiple calcified and ossified intra-articular loose bodies. 3. High-riding humeral head with effacement of the acromial humeral interval and atrophy of the supraspinatus and infraspinatus muscles, which are suspicious for underlying chronic full-thickness rotator cuff tendon tears. 4. Moderate acromioclavicular joint osteoarthrosis. 5. Peripheral reticulations and areas of mosaic attenuation in the included right lung are suspicious for nonspecific chronic interstitial lung disease. Recommend correlation with pulmonary function tests. Approved by: Molina Martinez M.D. on 04/26/2024 at 16:53
== END ==
PROVIDERS: Family Provider Family Medicine; PCP Family Medicine; Referring Provider Orthopaedic Surgery; Visit Provider Orthopaedic Surgery
DX: M19.011 Primary osteoarthritis, right shoulder (principal); M25.511 Pain in right shoulder; M25.411 Effusion, right shoulder; M24.011 Loose body in right shoulder
CPT/HCPCS: 73200

== ENCOUNTER 2024-05-07 06:08 | Day surgery (SDC) | payer OTHER, SELFPAY ==
[2024-04-29 09:50] VITALS: BMI 23.0
[2024-04-29 15:04] VITALS: BMI 23.0
[2024-05-07] VITALS (8 sets, daily range): BP systolic 117–165; BP diastolic 71–95; PULSE 60–92; RESP 12–18; TEMP 36.2–36.6; O2SAT 93–99; BMI 23.0
--- NOTE | 2024-05-07 | DI.RAD.S_ITS ---
PROCEDURE: XR SHOULDER RT 1V INDICATIONS: POST OP RT TOTAL SHOULDER TECHNIQUE: 2 views of the shoulder were acquired. COMPARISON: None. FINDINGS: Bones: Expected immediate postoperative appearance, status post reversed total right shoulder arthroplasty. No fractures or dislocations. No suspicious bony lesions. Visualized ribs appear intact. Soft tissues: No suspicious soft tissue calcifications. Expected air in the joint. IMPRESSION: Expected immediate postoperative appearance. Dictated by: Fernando Roger M.D. on 05/07/2024 at 9:56 Approved by: Fernando Roger M.D. on 05/07/2024 at 9:57
[2024-05-07] MEDS: LACTATED RINGERS 1,000 ML 42 ML IV (07:13)
[2024-05-07] MEDS: ACETAMINOPHEN 325 MG TABLET 975 MG PO (07:24)
--- NOTE | 2024-05-07 07:32 | PM.PREOP ---
Pre-operative Note Interval Note History & Physical reviewed/Exam performed by Physician: Yes Changes to H&P: No
--- NOTE | 2024-05-07 07:40 | SUR.OPER ---
Beach chair with Maquet shoulder positioner. Lower body on padded OR bed. Head in foam padded head cradle, secured with straps. Non-operative arm secured <90 degrees abduction. Pillow under knees. Safety belt at thigh. Cloth tape over blanket over lower legs.
[2024-05-07] MEDS: CEFAZOLIN 2 GM/100 ML PREMIX 100 ML IV (07:55)
[2024-05-07] MEDS: TRANEXAMIC ACID 1,000 MG in SODIUM CHLORIDE 0.9% 100 ML 200 MG IV (08:00)
--- NOTE | 2024-05-07 09:28 | PM.OP.1 ---
Operative Date/Time/Diagnoses Date of procedure: 05/07/24 Time of procedure: 09:28 Pre-op diagnosis: Right rotator cuff tear arthropathy Post-op diagnosis: same Procedure & Clinicians Procedure: Right reverse total shoulder arthroplasty Same procedure as scheduled: Yes Indications: Indications: This is a 83-year-old female who has rotator cuff arthropathy. Symptoms have been present for years, insidious onset. Patient has failed a reasonable attempt at conservative therapy. After extensive discussion in clinic, they wished to go forward with surgery. Risks and benefits were described including the risk of infection, bleeding, damage to internal structures including nerves. We also discussed the risk of failure of surgery and the need for revision surgery as well as the risk of anesthesia. The patient expressed understanding with these risks and wished to go forward with surgery. Surgeon: Walter [employer] Etch Operator: Anayeli Hernandez Anesthesia Type: General Operative Notes Findings: Findings: Osteoarthritis of the glenoid and humeral head as well as a defient rotator cuff as noted on preoperative imaging and under direct visualization Closure Type: primary Specimen(s): none sent Prosthetic devices, grafts, tissues, transplants, or devices: Tornier implants Base plate: standard 25 mm, full wedge Glenosphere: 39 mm Stem: Perform 2+ Poly: +0, 55% coverage Estimated Blood Loss (mL): 100 Blood products transfused: none Procedure in detail: Patient was seen in the preoperative holding unit. The correct right shoulder was identified and marked with my initials. Again we discussed the risks and benefits of surgery and they wished to go forward with surgery. The patient was brought back to the operating room and placed supine on the operating table. Smooth endotracheal intubation was performed by anesthesia. All prominences were padded and they were placed into the beach chair position. Intravenous antibiotics were given. The right shoulder was then prepped with the standard sterile preparation and draping. A time-out was then performed in my initials were again identified on the correct shoulder. 1 g of IV tranexamic acid was given. A standard deltopectoral incision was made. Skin flaps were made. The cephalic vein was identified and retracted laterally. This was protected throughout the remainder of the case. Sharp dissection was made along the deltoid, subacromial and subcoracoid space to release adhesions. The conjoined tendon was identified and the axillary nerve was palpated and continuous using the tug test. It was protected throughout the remainder of the case. A brown retractor was placed underneath the deltoid muscle and a darach retractor underneath the conjoint tendon. The subscapularis muscle was ntoed to be intact. The biceps tendon was identified in the bicipital groove. This was released from its sheath, and taken from its origin on the glenoid and tied into the pectoralis tendon for a solid tenodesis. We then began a subscapularis peel. The subscapularis was tagged with an Ethibond suture. A 360 degree circumferential release of the subscapularis was performed with protection of the axillary nerve. The coracohumeral ligament was released at the base of the coracoid. The shoulder was then dislocated. Osteophytes were removed using combination of rongeur and osteotome. The rotator cuff was noted to be insufficient. An intramedullary guide was used set at version of 20?. Using an oscillating saw a conservative humeral head cut was made. Impaction reamers were reamed up to a size 2 stem with a built-in angle 135?. A neck protector was placed. Attention was then turned to the glenoid. After retracting the humeral head posteriorly a circumferential release was performed of the capsule with protection of the axillary nerve. The labrum was then released starting at the biceps anchor and going around the rim a small amount of triceps was released from the inferior glenoid. A center guide pin was then placed using the guide, followed by Reamer. After adequate cartilage was removed the boss was reamed and the centeral hole was drilled and measured. The base plate was then implanted and screwed into place. The peripheral screws were then sequentially drilled, measured, and placed. A 39 glenosphere was then selected and screwed into place onto the base plate. Turning back to the humerus, the humeral head was delivered and trialed with a 0, 55% coverage. The arm was taken through range of motion and this was felt to be stable. The trial was then removed and a dilute Betadine wash was then performed with 1 L of sterile saline. Before placing the final implant, drill holes were made in the bicipital groove for the subscapularis repair, and sutures were passed through the drill holes. The final stem was then impacted into the humerus. The shoulder was then reduced and again brought through range of motion and was felt to be stable. The subscapularis was then repaired using a modified racking hitch with nice loupes. The deltopectoral interval was then closed with #2 Ethibond. The skin was closed with 2-0 vicryl and 3-0 Monocryl followed by Aquacel dressing. Patient was awoken from anesthesia and brought back to the postoperative recovery unit without issue. They were placed into a sling. Assisting participation: This operation could not have been safely performed (without compromising the technical results or length of the procedure) without the assistance of a skilled surgical scrub technologist. The surgical scrub technologist was medically necessary for proper positioning, retraction and manipulation of instruments, proper exposure, graft prep, and manipulation of tissue. Complications: none Post-operative Condition: stable Disposition: PACU Plan for aftercare: Postoperative instructions: Sling to remain on for 6 weeks. No external rotation past neutral for 6 weeks. Okay for the sling to come off for shower. Okay to shower over the Aquacel dressing. If any water gets underneath the dressing, remove the dressing. First postoperative visit in 2 weeks.
[2024-05-07] MEDS: ONDANSETRON 4 MG/2 ML INJ IV ×2 (09:51→11:03)
[2024-05-07] MEDS: OXYCODONE IR 5 MG TABLET PO (09:53)
== END 2024-05-07 12:33 | disposition home or self-care (01) ==
PROVIDERS: Family Provider Family Medicine; PCP Internal Medicine; Referring Provider Orthopaedic Surgery; Visit Provider Orthopaedic Surgery
PROC: (CPT 23472; principal; 2024-05-07 07:45)
DX: M19.011 Primary osteoarthritis, right shoulder (principal); G89.18 Other acute postprocedural pain; M25.711 Osteophyte, right shoulder
CPT/HCPCS: 23472; 64415; 73020; C1776; J0690; J1100; J2405; J2704; J3010

== ENCOUNTER → 2024-09-15 11:28 | Outpatient (CLI) | payer MEDICARE, OTHER, SELFPAY ==
--- NOTE | 2024-09-15 11:32 | DI.MRI.S_ITS ---
PROCEDURE: MR SHOULDER RT WO CON INDICATIONS: OSEOART TECHNIQUE: Noncontrast oblique coronal T2 fast spin echo with fat saturation, oblique sagittal T1 spin echo and T2 fast spin echo with fat saturation, axial T1 spin echo and T2 fast spin echo with fat saturation through the shoulder. COMPARISON: [facility], CT, CT UE RT WO CON, 04/26/2024, 15:51. [facility] [place], CR, XR SHOULDER 2+ VIEWS RIGHT, 08/10/2024, 15:18. FINDINGS: Image quality: Excellent. Rotator cuff: Diffuse muscle edema of supraspinatus, infraspinatus, and teres minor, with severe fatty atrophy. Nondiagnostic evaluation of the rotator cuff tendons given susceptibility artifact. Bones and bursae: Status post reverse total shoulder arthroplasty, creating artifacts and severely limits evaluation. Large subacromial/subdeltoid bursitis. Capsule and soft tissues: The labrum/surgically absent. The visualized extra-articular biceps tendon is intact. Small amount of scarring versus atelectasis in the right upper lung. IMPRESSION: 1. Status post reverse total shoulder arthroplasty, creating artifacts and severely limits evaluation. 2. Large subacromial/subdeltoid bursitis. 3. Diffuse muscle edema the supraspinatus, infraspinatus, and teres minor, with severe fatty atrophy. Dictated by: January Olsen M.D. on 09/15/2024 at 16:49 Approved by: January Olsen M.D. on 09/15/2024 at 16:54
== END ==
PROVIDERS: Family Provider Family Medicine; PCP Internal Medicine; Referring Provider Physician Assistant Surgical; Visit Provider Physician Assistant Surgical
DX: M19.011 Primary osteoarthritis, right shoulder (principal); Z96.611 Presence of right artificial shoulder joint; M75.51 Bursitis of right shoulder; R60.0 Localized edema; M62.511 Muscle wasting and atrophy, not elsewhere classified, right shoulder
CPT/HCPCS: 73221

== ENCOUNTER 2025-03-23 09:59 | Outpatient (CLI) | payer MEDICARE, OTHER, SELFPAY ==
[2025-03-23 10:40] VITALS: BP 139/94; PULSE 72; RESP 17; TEMP 36.2; O2SAT 93
[2025-03-23 10:49] VITALS: BP 180/88; PULSE 82; RESP 20; O2SAT 98
[2025-03-23 10:54] VITALS: BP 164/77; PULSE 79; RESP 16; O2SAT 96
[2025-03-23] MEDS: LIDOCAINE 1% (PF) 5 ML INJ (10:57)
[2025-03-23 10:59] VITALS: BP 165/98; PULSE 69; RESP 20; O2SAT 96
[2025-03-23 11:04] VITALS: BP 174/92; PULSE 79; RESP 18; O2SAT 96
[2025-03-23 11:08] VITALS: BP 140/96; PULSE 72; RESP 18; O2SAT 98
--- NOTE | 2025-03-23 12:22 | PM.PROC.IR.1 ---
Date/Time/Diagnoses Date of procedure: 02/02/25 Time of procedure: 10:30 Pre-procedure diagnosis: Lumbosacral radiculopathy Post-procedure diagnosis: same Procedure Notes Procedure: Interlaminar epidural steroid injection L5-S1 Indications: Pain/lumbosacral radiculopathy Physician: Rosendo Marte Total sedation minutes: 0 Complications: none Procedure in detail & Post-procedure care: Patient is here for the planned procedure today as noted. No significant change since the last office visit. For additional clinical scenario please see those office notes. Focused exam: Vital signs reviewed as charted on intake. Gen: Well developed. No acute distress. CV: RRR with short episode of irreg irreg. ? murmur. Chest: Non-labored breathing, CTAB. Psych: Alert and well-oriented. Mood/Affect: normal. Patient suitable for the planned procedure today: Yes, see below === The following procedure was performed in the office today: Lumbar Epidural Steroid Injection with fluoroscopic guidance - Interlaminar approach ([id number]) Levels Treated: [L5-S1] Approach: interlaminar Soft tissue: [1% lidocaine 2 mL] Test dose: [1% lidocaine 1 mL] Injectate: 0.75 mL of Depo-Medrol (80mg/mL) in 1.25 mL 1% lidocaine and 1 mL normal saline Fluoroscopy Agent: Isovue 300-M 1.5 mL Notes: 1- On preprocedure exam she was noted to have a short episode of irregularly irregular HR, asymptomatic. Also note possible subtle murmur. She is unaware of either of these. She is asymptomatic with no CP, SOB, or dizziness. We discussed medical evaluation options. She would like to proceed with the procedure now, and she will contact her PCP to arrange early follow up for further evaluation. Red flag symptoms reviewed with her, she will seek emergency care if any of these develop. I also contacted her PCP office (nurse Navarro) and relayed the above, they will contact her today to schedule an eval. 2- She reports IM Toradol injection at the last office visit was helpful for 1-2 days. 3- 3.5 in 20 gauge Touhy needle utilized end adequate. Preprocedure pain 7/10, postprocedure pain 3/10. Procedure: After discussing the risks, benefits, and alternatives to the procedure, the patient expressed understanding and wished to proceed. The risks include but are not limited to infection, allergic reaction, nerve damage, stroke, paralysis, epidural hematoma, syncope, headache, respiratory or cardiac arrest, spinal cord injury, and scar formation. Informed consent was obtained and all patient questions were answered. The patient was brought to the procedure suite and placed in the prone position. A pre-procedural pause was conducted to verify: correct patient identity, procedure to be performed and as applicable, correct side and site, correct patient position, and any special requirements. Using a paramedian approach from the side noted above, the region overlying the target was localized under fluoroscopic visualization and the soft tissues overlying this structure were infiltrated with the anesthetic listed above. With fluoroscopic guidance, a #20 gauge Tuohy needle (unless otherwise noted) was inserted into the epidural space using a paramedian approach. The epidural space was localized utilizing intermittent multiplanar fluoroscopic guidance and loss of resistance technique. After negative aspiration, the contrast noted above was injected into the epidural space and the flow of contrast was observed, confirming epidural spread without evidence of intravascular or intrathecal spread. Multi-planar radiographs were obtained for documentation purposes. A test dose of lidocaine was injected into the above noted epidural space, and the patient was observed for 30-60 seconds. No sensory deficits were reported and normal lower extremity motor function was noted. Subsequently, the injectate as noted above was administered into the level noted above. The patient tolerated the procedure well and was discharged after an appropriate period of observation. If there are any complications, the patient was instructed to call us. The patient is to follow-up with the requesting provider in 2-3 weeks. This note was compiled using voice recognition software and therefore may contain typos. Please contact the author with any questions or concerns.
== END 2025-03-23 11:20 | disposition home or self-care (01) ==
PROVIDERS: PCP Family Medicine; Referring Provider Physical Medicine & Rehabilitation; Visit Provider Physical Medicine & Rehabilitation
DX: M54.17 Radiculopathy, lumbosacral region (principal)
CPT/HCPCS: 62323; J1010

== ENCOUNTER → 2025-06-02 11:49 | Outpatient (CLI) | payer MEDICARE, OTHER, SELFPAY ==
--- NOTE | 2025-06-02 11:51 | DI.MRI.S_ITS ---
PROCEDURE: MR LUMBAR SPINE WO CON INDICATIONS: low back/buttock pain TECHNIQUE: Noncontrast sagittal T1 spin echo and T2 fast echo, coronal T2, sagittal STIR, and T2 fast spin echo through the lumbar spine. Delete COMPARISON: [facility], MR, MR LUMBAR SPINE WO CON, 02/28/2022, 14:04. FINDINGS: Image quality: Excellent. Alignment and Curvature: No plain films are available for comparison, for numbering purposes. Thus, for the purposes of this examination, 5 lumbar type vertebral bodies will be presumed, as denoted on the montage panel. This should be confirmed and correlated with plain films, prior to any lumbar spinal intervention.Moderate leftward curvature of the spine at the thoracolumbar junction. Mild diffuse rightward curvature of the mid/lower lumbar spine. Loss of normal lumbar lordosis. 3 mm of anterolisthesis of T12 on L1. 3 mm of retrolisthesis of L2 on L3. 3 mm of anterolisthesis of L3 on L4. 3 mm of retrolisthesis of L5 on S1. Bone Marrow: Marrow is of normal overall signal. No acute vertebral body compression fractures. Moderate reactive signal within the endplates adjacent to the T12-L1 and L2-L3 intervertebral discs. Mild reactive signal within the remaining lumbar and lower thoracic endplates. L4 laminectomy. Spinal Cord: Conus medullaris terminates at the L1-L2 disc space level. Visualized cord demonstrates normal signal and size. Paraspinous Soft Tissues: No paravertebral masses. Gallbladder is distended and demonstrates multiple calculi within its lumen. T12-L1: Moderate disc height loss and desiccation. Moderate diffuse disc bulge with superimposed right far lateral protrusion. Mild facet and ligamentum flavum hypertrophy. Moderate canal stenosis. Severe right and moderate left foraminal stenosis. Right T12 nerve root compression. No significant change. L1-L2: Severe disc height loss and desiccation. Moderate diffuse disc bulge with superimposed right far lateral protrusion. Mild facet and ligamentum flavum hypertrophy. Increased, severe canal stenosis. Severe right and moderate left foraminal stenosis. Right L1 nerve root compression is not significantly changed. L2-L3: Moderate disc height loss and desiccation. Mild diffuse disc bulge. Mild facet and ligamentum flavum hypertrophy. Mild canal stenosis. Moderate left and mild right foraminal stenosis. No significant change. L3-L4: Severe disc height loss and desiccation. Mild diffuse disc bulge. Moderate bilateral facet hypertrophy. Mild canal stenosis. Moderate left and mild right foraminal stenosis. No significant change. L4-L5: Severe disc height loss and desiccation. Mild diffuse disc bulge. Moderate bilateral facet hypertrophy. Mild canal stenosis. Moderate to severe left and moderate right foraminal stenosis. Left L4 nerve root compression. No significant change. L5-S1: Moderate disc height loss and desiccation. Moderate diffuse disc bulge/osteophyte. Mild bilateral facet and ligamentum flavum hypertrophy. Mild canal stenosis. Moderate right and moderate to severe left foraminal stenosis. Mild left L5 nerve root compression. No significant change. IMPRESSION: 1. Multilevel degenerative disc and facet disease, as well as ligamentum flavum hypertrophy and epidural lipomatosis. 2. Multilevel canal stenoses, worst at L1-L2 where there is severe canal stenosis. 3. Multilevel foraminal stenoses, worst at T12-L1, L1-L2, L4-L5, and L5-S1, where there is associated intraforaminal nerve root compression. Recommend correlation with clinical symptoms to ascertain relevance of these findings. 4. Cholelithiasis. Dictated by: Esau Echevarria M.D. on 06/02/2025 at 13:30 Approved by: Esau Echevarria M.D. on 06/02/2025 at 13:36
== END ==
LOC: MRI 11:50
PROVIDERS: PCP Family Medicine; Referring Provider Physical Medicine & Rehabilitation; Visit Provider Physical Medicine & Rehabilitation
DX: M51.16 Intervertebral disc disorders with radiculopathy, lumbar region (principal); M51.17 Intervertebral disc disorders with radiculopathy, lumbosacral region; M47.26 Other spondylosis with radiculopathy, lumbar region; M47.27 Other spondylosis with radiculopathy, lumbosacral region; M48.061 Spinal stenosis, lumbar region without neurogenic claudication; M48.07 Spinal stenosis, lumbosacral region; M54.50 Low back pain, unspecified; E88.2 Lipomatosis, not elsewhere classified; G89.29 Other chronic pain
CPT/HCPCS: 72148